=== PATIENT | female | born 1945 | race Caucasian/White ===

== ENCOUNTER 2022-12-17 08:29 | Outpatient (RCR) | payer MEDICARE, SELFPAY | END 2023-01-31 16:00 | disposition home or self-care (01) | LOC: HO.WCC 08:29 | PROVIDERS: PCP Internal Medicine; Visit Provider Physician Assistant | DX: L98.492 Non-pressure chronic ulcer of skin of other sites with fat layer exposed (principal); Z87.891 Personal history of nicotine dependence; Z79.899 Other long term (current) drug therapy | CPT/HCPCS: 87070; 87205; 97602; 99212 ==